=== PATIENT | female | born 2000 | race Caucasian/White ===

== ENCOUNTER 2022-01-30 23:12 | Emergency (ER) | payer BC ==
[~2022-01-30] VITALS: Ht 162.6 cm; Wt 68.0 kg
--- NOTE | 2022-01-30 23:12 | NUR ---
PT JEMIMA BHAKTA. TAKEN TO BED 12
--- NOTE | 2022-01-30 23:15 | NUR ---
21 yo f biba with c/c of general weakness xtoday. pt states she has been drinking heavily for 8days. reports use of cocaine xyesterday. reports general weakness, palpitations, muscle spasms. n/v and chest pressure. 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
[2022-01-30 23:25] VITALS: BP 132/91
[2022-01-30 23:58] LABS: BASOPHILS # (AUTO) 0.1 K/uL (0.00-0.22); BASOPHILS % (AUTO) 0.6 % (0.0-2.0); EOSINOPHILS % (AUTO) 0.1 % (0.0-4.0); HEMATOCRIT 42.1 % (36-48); HEMOGLOBIN 14.2 g/dL (12.0-16.0); LYMPHOCYTES % (AUTO) 14.7 % (20.5-51.1); MEAN CORPUSCULAR HEMOGLOBIN 29 pg (27-31); MEAN CORPUSCULAR HGB CONC 34 g/dL (33-37); MEAN CORPUSCULAR VOLUME 85.7 fL (80-94); MONOCYTES # (AUTO) 0.5 K/uL (0.8-1.0); MONOCYTES % (AUTO) 3.7 % (1.7-9.3); NEUTROPHILS # (AUTO) 10.9 K/uL (1.8-7.7); NEUTROPHILS % (AUTO) 80.9 % (42.2-75.2); PLATELET COUNT (AUTO) 297 K/uL (140-450); RED BLOOD CELL COUNT(AUTO) 4.91 MIL/uL (4.20-5.40); WHITE BLOOD COUNT (AUTO) 13.5 K/uL (4.8-10.8)
[2022-01-30 23:59] LABS: BILIRUBIN,URINE NEGATIVE (NEGATIVE); BLOOD, URINE 3+ (NEGATIVE); COLOR,URINE ORANGE (YELLOW); LEUKOCYTE ESTERASE ,URINE TRACE (NEGATIVE); NITRITE, URINE POSITIVE (NEGATIVE); UGLUCOSE TRACE (NEGATIVE)
[2022-01-31 00:21] LABS: BARBITURATE, URINE NEGATIVE ng/ml (NEG <=200); BENZODIAZEPINE, URINE NEGATIVE ng/mL (NEG <=200); CANNABINOID, URINE NEGATIVE ng/mL (NEG <=50); COCAINE, URINE POSITIVE ng/mL (NEG <=300); OPIATE, URINE NEGATIVE ng/mL (NEG <=2000); PHENCYCLIDINE SCREEN,URINE NEGATIVE ng/mL (NEG <=25)
[2022-01-31 00:22] LABS: APPEARANCE,URINE HAZY (CLEAR)
[2022-01-31 00:24] LABS: RBC,URINE 0-5 /HPF (0-5)
--- NOTE | 2022-01-31 00:28 | NUR ---
mom at bedside. pt is tearful, states she feels better.
[2022-01-31 00:31] LABS: ALBUMIN 4.5 g/dL (3.4-5.0); ANION GAP 28.2 (8-16); CARBON DIOXIDE 16.1 mmol/L (21-32); CREATININE 0.9 mg/dL (0.6-1.3); TOTAL BILIRUBIN 0.8 mg/dL (0.0-1.0)
[2022-01-31 00:36] LABS: POTASSIUM 2.3 mmol/L (3.5-5.1)
[2022-01-31] MEDS ORDERED: POTASSIUM CHLORIDE 10 MEQ TABER PO ONE (01:00)
[2022-01-31] MEDS ORDERED: NACL 0.9% 1,000 ML IV ONE (01:00)
[2022-01-31] MEDS ORDERED: POTASSIUM CHL 40 MEQ/ D5-1/2NS 1,000 ML IV ONE (01:00)
--- NOTE | 2022-01-31 01:45 | NUR ---
provided pt with junior and an per request.
--- NOTE | 2022-01-31 03:37 | NUR ---
pt is awake and alert talking to her dad at bedside. pt is in stable condition. vss. all needs met at this time.
--- NOTE | 2022-01-31 03:53 | NUR ---
lab at bedside.
[2022-01-31 04:14] LABS: ANION GAP 14.2 (8-16); CARBON DIOXIDE 24.7 mmol/L (21-32); CREATININE 0.7 mg/dL (0.6-1.3); POTASSIUM 3.9 mmol/L (3.5-5.1)
[2022-01-31] MEDS ORDERED: NITR100C7 PO (04:39)
[2022-01-31 04:45] VITALS: BP 133/73
--- NOTE | 2022-01-31 04:45 | NUR ---
Patient discharged with v/s stable. Written and verbal after care instructions given and explained. Patient alert, oriented and verbalized understanding of instructions. Ambulatory with by parent. All questions addressed prior to discharge. ID band removed. Patient advised to follow up with PMD. Rx of macrobid given. Patient educated on indication of medication including possible reaction and side effects. Opportunity to ask questions provided and answered.
--- NOTE | 2022-02-01 12:57 | NUR ---
LATE ENTRY- IV NORMAL SALINE DISCONTINUED AT 0445.
== END 2022-01-31 04:45 | disposition home or self-care (01) ==
LOC: MED 23:12
DX: E86.0 Dehydration (principal); F10.10 Alcohol abuse, uncomplicated; E87.2 Acidosis; F14.90 Cocaine use, unspecified, uncomplicated; Y90.0 Blood alcohol level of less than 20 mg/100 ml
CPT/HCPCS: 36415; 80048; 80053; 80305; 81001; 81025; 82550; 83605; 85025; 87086; 93005; 96365; 96366; 99284; G0482; J7030

== ENCOUNTER 2022-04-19 11:02 | Emergency (ER) | payer BC ==
[~2022-04-19] VITALS: Ht 162.6 cm; Wt 65.3 kg
[~2022-04-19 11:02] MED LIST: NITR100C7 PO
[2022-04-19 11:05] VITALS: BP 156/95
--- NOTE | 2022-04-19 11:12 | NUR ---
PT TO WAIT IN LOBBY.
--- NOTE | 2022-04-19 11:56 | NUR ---
PT AMBULATED TO ER BED 9 WITH A STEADY GAIT.
[2022-04-19] MEDS: NACL 0.9% 1,000 ML IV ONE (13:14)
[2022-04-19] MEDS: ONDANSETRON 4 MG/2 ML VIAL IVP ONE (13:16)
[2022-04-19] MEDS: LORazepam 2 MG/ML VIAL IVP ONE (13:20)
[2022-04-19] MEDS ORDERED: ONDA-188 SL (13:38)
[2022-04-19 14:15] VITALS: BP 116/66
--- NOTE | 2022-04-19 14:50 | NUR ---
IV removed, catheter intact and site benign. Applied folded 4x4 gauze and tape to stop bleeding.
--- NOTE | 2022-04-19 14:56 | NUR ---
Patient discharged with v/s stable. Written and verbal after care instructions FOR PANIC ATTACK, GENERALIZED WEAKNESS DISORDER AND DEHYDRATION given and explained. Patient alert, oriented and verbalized understanding of instructions. Ambulatory with steady gait. All questions addressed prior to discharge. ID band removed. Patient advised to follow up with PMD. Rx of ZOFRAN given. Opportunity to ask questions provided and answered.
--- NOTE | 2022-04-19 15:30 | NUR ---
The patient's care was reviewed and supervised by JUAN ANTONIO Carr, RN.
== END 2022-04-19 14:56 | disposition home or self-care (01) ==
LOC: MED 11:02
DX: F41.9 Anxiety disorder, unspecified (principal); F32.9 Major depressive disorder, single episode, unspecified; R20.0 Anesthesia of skin; R63.0 Anorexia; F17.200 Nicotine dependence, unspecified, uncomplicated; Z79.899 Other long term (current) drug therapy; Z88.8 Allergy status to other drugs, medicaments and biological substances
CPT/HCPCS: 81002; 81025; 96361; 96374; 96375; 99284; J2060; J2405

== ENCOUNTER 2022-05-12 17:08 | Emergency (ER) | payer BC ==
[~2022-05-12] VITALS: Ht 162.6 cm; Wt 64.1 kg
[~2022-05-12 17:08] MED LIST changes: +ONDA-188 SL
[2022-05-12 17:22] VITALS: BP 116/69
--- NOTE | 2022-05-12 17:29 | NUR ---
Arlin macdonald in [facility] - 05/12/22 at 1731 by [facility] PT AMB TO BED 6.
--- NOTE | 2022-05-12 18:00 | NUR ---
NO NURSING INTERVENTION NEEDED. SEEN & TREATED BY SHANTANU ALCANTAR.
[2022-05-12] MEDS ORDERED: FAMO-90 PO (18:37)
[2022-05-12] MEDS ORDERED: BEN10 PO (18:37)
[2022-05-12] MEDS ORDERED: IMO2 PO (18:37)
[2022-05-12 19:05] VITALS: BP 118/72
--- NOTE | 2022-05-12 19:05 | NUR ---
Note leanderone in EDM - 05/12/22 at 1908 by [facility] Patient discharged with v/s stable. Written and verbal after care instructions given and explained. Patient alert, oriented and verbalized understanding of instructions. Ambulatory with steady gait. All questions addressed prior to discharge. ID band removed. Patient advised to follow up with PMD. Rx of PEPCID, LOPERAMIDE, BENTYLE given. Patient educated on indication of medication including possible reaction and side effects. Opportunity to ask questions provided and answered.
== END 2022-05-12 19:05 | disposition home or self-care (01) ==
LOC: MED 17:08
DX: R10.13 Epigastric pain (principal); R19.7 Diarrhea, unspecified; F41.1 Generalized anxiety disorder; Z79.899 Other long term (current) drug therapy; Z88.8 Allergy status to other drugs, medicaments and biological substances
CPT/HCPCS: 81002; 81025; 99283

== ENCOUNTER 2022-09-21 09:19 | Emergency (ER) | payer BC ==
[~2022-09-21] VITALS: Ht 162.6 cm; Wt 65.3 kg
[~2022-09-21 09:19] MED LIST changes: +BEN10 PO; +FAMO-90 PO; +IMO2 PO
[2022-09-21 09:28] VITALS: BP 127/79
--- NOTE | 2022-09-21 10:11 | NUR ---
22y/o female presents to ED with c/o numbness, chest pressure, SOB, and palpitations x 1 day. Pt reports having a "panic attack" yesterday that lasted 10 minutes, and one more epidsode this morning at work lasting 1 hour. Pt states she felt bilateral hand and leg numbness during both episodes. Denies numbness, SOB, chest pressure and palpitations at the moment. Denies taking medications. Pt placed in gown and bedside monitor, bed set at lowest position, side rails x1.
[2022-09-21 11:25] VITALS: BP 116/72
--- NOTE | 2022-09-21 11:26 | NUR ---
Patient discharged with v/s stable. Written and verbal after care instructions about panic attack given and explained. Patient verbalized understanding. Ambulatory with steady gait. All questions addressed prior to discharge. Advised to follow up with PMD.
== END 2022-09-21 11:25 | disposition home or self-care (01) ==
LOC: MED 09:19
DX: F41.0 Panic disorder [episodic paroxysmal anxiety] (principal); F15.90 Other stimulant use, unspecified, uncomplicated; Z72.89 Other problems related to lifestyle
CPT/HCPCS: 81002; 81025; 99282

== ENCOUNTER 2022-12-06 20:52 | Emergency (ER) | payer BC ==
[~2022-12-06] VITALS: Ht 160 cm; Wt 63.5 kg
[2022-12-06 22:07] VITALS: BP 120/86
--- NOTE | 2022-12-06 22:10 | NUR ---
TO LOBBY A/W BED AMBULATORY
[2022-12-06] MEDS ORDERED: ATA25 PO (22:33)
[2022-12-06] MEDS ORDERED: IBUP-2213 PO (22:33)
[2022-12-06 22:50] VITALS: BP 120/86
--- NOTE | 2022-12-06 22:50 | NUR ---
Patient discharged with v/s stable. Written and verbal after care instructions given and explained. Patient alert, oriented and verbalized understanding of instructions. Ambulatory with steady gait. All questions addressed prior to discharge. ID band removed. Patient advised to follow up with PMD. Rx of ATARAX, IBUPROFEN given. Patient educated on indication of medication including possible reaction and side effects. Opportunity to ask questions provided and answered.
== END 2022-12-06 22:50 | disposition home or self-care (01) ==
LOC: MED 20:52
DX: F41.9 Anxiety disorder, unspecified (principal); M62.838 Other muscle spasm; Z88.6 Allergy status to analgesic agent; Z79.899 Other long term (current) drug therapy
CPT/HCPCS: 99283

== ENCOUNTER 2023-03-06 22:53 | Emergency (ER) | payer BC ==
[~2023-03-06] VITALS: Ht 157.5 cm; Wt 49.9 kg
[~2023-03-06 22:53] MED LIST changes: +ATA25 PO; +IBUP-2213 PO
[2023-03-06 23:08] VITALS: BP 140/89
--- NOTE | 2023-03-07 02:32 | NUR ---
PT CALLED IN LOBBY AND OUTSIDE x3 WITH NO ANSWER. PT LWBS
[2023-03-07] MEDS ORDERED: ONDA8TAB87 PO (04:13)
[2023-03-07] MEDS ORDERED: LIB25 PO (04:13)
== END 2023-03-07 02:32 | disposition left against medical advice (07) ==
LOC: MED 22:53
DX: F10.239 Alcohol dependence with withdrawal, unspecified (principal); R25.1 Tremor, unspecified; Z53.21 Procedure and treatment not carried out due to patient leaving prior to being seen by health care provider
CPT/HCPCS: 99281

== ENCOUNTER 2023-03-07 03:41 | Emergency (ER) | payer BC ==
[~2023-03-07] VITALS: Ht 162.6 cm; Wt 63.5 kg
[2023-03-07 03:50] VITALS: BP 150/91
--- NOTE | 2023-03-07 03:59 | NUR ---
to bed 12
--- NOTE | 2023-03-07 04:04 | NUR ---
Dr. Adorno by bedside
[2023-03-07] MEDS ORDERED: ONDANSETRON 4 MG ODT PO ONE (04:10)
[2023-03-07] MEDS ORDERED: LORazepam 1 MG TAB PO ONE (04:10)
[2023-03-07] MEDS ORDERED: ONDA8TAB87 PO (04:13)
[2023-03-07] MEDS ORDERED: LIB25 PO (04:13)
[2023-03-07 05:04] VITALS: BP 118/76
--- NOTE | 2023-03-07 05:04 | NUR ---
Patient discharged with v/s stable. Written and verbal after care instructions given and explained. Patient alert, oriented and verbalized understanding of instructions. Ambulatory with steady gait. All questions addressed prior to discharge. ID band removed. Patient advised to follow up with PMD. Rx of TIBURCIO MELCHOR given. Patient educated on indication of medication including possible reaction and side effects. Opportunity to ask questions provided and answered.
== END 2023-03-07 05:04 | disposition home or self-care (01) ==
LOC: MED 03:41
DX: F10.239 Alcohol dependence with withdrawal, unspecified (principal); R11.2 Nausea with vomiting, unspecified; Y90.9 Presence of alcohol in blood, level not specified
CPT/HCPCS: 99283; Q0162